=== PATIENT | female | born 1955 | race Caucasian/White ===

== ENCOUNTER → 2016-09-05 | Outpatient (CLI) | payer BC ==
[2016-05-03 10:14] VITALS: BP 149/72
--- NOTE | 2016-09-05 14:17 | RAD ---
HISTORY: Asthma Study: PA and lateral views the chest Comparison: 07/02/2016 Findings: Lungs are hypo aerated. There is mild bibasilar atelectasis. No focal airspace opacities are noted. Cardiac silhouette is at the upper limits of normal in size. This appearance is likely exaggerated b y the low lung volumes. There are no pleural effusions. IMPRESSION: 1. Low lung volumes with mild bibasilar atelectasis. No focal airspace opacities are demonstrated.. Reported By:
== END ==
LOC: RAD 12:33
PROVIDERS: ATTEND Internal Medicine Pulmonary Disease
DX: E66.8 Other obesity (principal); J45.909 Unspecified asthma, uncomplicated
CPT/HCPCS: 71020

== ENCOUNTER → 2016-11-20 | Outpatient (CLI) | payer BC ==
[2016-05-03 10:14] VITALS: BP 149/72
[~2016-11-20] MED LIST: NS 100 ML IV 100 ML IV ONE
[2016-11-20 09:12] LABS: CREATININE 1.24 mg/dL (0.55-1.02)
--- NOTE | 2016-11-21 10:42 | CT ---
CT OF THE ABDOMEN AND PELVIS WITH CONTRAST HISTORY: Bilateral upper quadrant palpable cysts Comparison: None Technique: Multiple axial images of the abdomen and pelvis were obtained from the lung bases to the pubic symphy sis follow the administration of IV contrast as well as oral contrast. Dose reduction techniques inc luding Automated Exposure Control (AEC) and adjustment of mA and kV were utlized. Findings: The heart is normal in size. There is no pericardial effusion. Lung bases are clear without focal con solidation, pleural effusion or pneumothorax. Liver and spleen are normal in size, enhancement characteristics and contour. No focal lesions. The p ortal vein is patent. No ductal dilitation. Gallbladder absent. Pancreatic atrophy. Adrenal glands ar e normal. Kidneys enhance symmetrically without hydronephrosis or nephrolithiasis. No bowel obstruction or inflammation. No abnormal appearing mesenteric or retroperitoneal lymph node s. No free fluid or fluid collections. The bladder is normal in appearance. Uterus and ovaries not well seen. No free fluid or abnormal pelv ic lymph nodes. No aggressive osseous lesions. IMPRESSION: 1. No explanation for patient's palpable findings is identified on this examination. Reported By:
== END ==
LOC: RAD 08:37
PROVIDERS: ATTEND Nurse Practitioner Family
DX: L98.9 Disorder of the skin and subcutaneous tissue, unspecified (principal)
CPT/HCPCS: 36415; 74177; 82565; 84520; A4222

== ENCOUNTER 2021-12-06 11:22 | Observation (INO) ==
[2021-12-06] MEDS ORDERED: Atrovent NEB TX 0.02% NEB SCH (14:52)
[2021-12-06] MEDS ORDERED: PROVENTIL NEB TX 0.083% 2.5MG/ 3ML NEB SCH (14:52)
[2021-12-06] MEDS ORDERED: TUSSIONEX PENNKINETIC SUSP PO PRN (14:52)
[2021-12-06 15:54] LABS: BASOPHILS % (AUTO) 0.3 % (0.2-1.0); EOSINOPHILS # (AUTO) 0.1 x10^3/uL (0.0-0.2); EOSINOPHILS % (AUTO) 1.1 % (0.9-2.9); HEMATOCRIT 40.7 % (36.0-47.0); HEMOGLOBIN 14.5 g/dL (12.0-16.0); LYMPHOCYTES # (AUTO) 1.3 X10^3/uL (1.3-2.9); LYMPHOCYTES % (AUTO) 16.8 % (21.0-51.0); MEAN CORPUSCULAR HEMOGLOBIN 31.4 pg (27.0-34.0); MEAN CORPUSCULAR HGB CONC 35.5 g/dL (33.0-35.0); MEAN CORPUSCULAR VOLUME 88.4 fL (80.0-100.0); MEAN PLATELET VOLUME 8.4 fL (7.4-11.0); MONOCYTES # (AUTO) 0.7 x10^3/uL (0.3-0.8); MONOCYTES % (AUTO) 8.8 % (0.0-13.0); NEUTROPHILS # (AUTO) 5.8 x10^3/uL (2.2-4.8); RED CELL DISTRIBUTION WIDTH 13.2 % (11.6-16.5); WHITE BLOOD COUNT 7.9 X10^3/uL (3.6-10.0)
[2021-12-06] MEDS ORDERED: NS 1/2 1,000 ML IV 1,000 ML IV ONE (16:04)
[2021-12-06 16:07] LABS: ALANINE AMINOTRANSFERASE 108 Units/L (12-78); ALBUMIN 3.2 g/dL (3.4-5.0); ALKALINE PHOSPHATASE 186 Units/L (46-116); BLOOD UREA NITROGEN 17 mg/dL (7-18); CALCIUM 9.2 mg/dL (8.5-10.1); CHLORIDE 102 mmol/L (98-107); COR CA(FOR HYPOALB) 9.8 mg/dL (8.5-10.1); CREATININE 1.17 mg/dL (0.55-1.02); SODIUM 140 mmol/L (136-145); TOTAL PROTEIN 3.8 g/dL (6.4-8.2); eGFR NON BLACK RACES 49 (>60)
[2021-12-06] MEDS: LEVAQUIN PREMIX IV 750 MG 750 MG/150 ML BAG IV SCH (16:27)
[2021-12-06] MEDS: ROBITUSSIN DM PO SCH ×3 (16:27→20:57)
[2021-12-06] MEDS: NS 1/2 1,000 ML IV 1,000 ML IV SCH (16:27)
[2021-12-06] MEDS ORDERED: PROVENTIL NEB TX 0.083% 2.5MG/ 3ML ONE (16:34)
[2021-12-06] MEDS ORDERED: MAGNESIUM SULFATE 1 GRAM/100 mL PREMIX 1 G/100 ML BAG IV PRN (16:34)
[2021-12-06] MEDS: PROVENTIL NEB TX 0.083% 2.5MG/ 3ML NEB SCH (16:42)
[2021-12-06] MEDS: K-DUR TAB 20 MEQ PO PRN (17:32)
--- NOTE | 2021-12-06 17:43 | RAD ---
HISTORYRelevant Clinical Information PNEUMONIASTUDYCHEST, 1 VIEWCOMPARISONNoneFINDINGSThe trachea is midline. The cardiac silhouette is unremarkable. The lungs are clear without focal infiltrate or effusion. The bony thorax is unremarkable.IMPRESSIONNo acute cardiopulmonary disease.Electronically signed by: WICHO BENSON (Dec 06, 2021 17:41:49)
[2021-12-06] MEDS: ZOSYN VIAL 4.5 GRAMS 4.5 G in NS 100 ML IV 100 ML IV SCH ×2 (18:03→22:51)
[2021-12-06] MEDS: MILK OF MAGNESIA PO SCH (20:57)
[2021-12-06] MEDS: PULMICORT NEB TX 0.5 MG NEB SCH (21:42)
[2021-12-07] MEDS: PROVENTIL NEB TX 0.083% 2.5MG/ 3ML NEB SCH ×5 (00:20→16:45)
[2021-12-07] MEDS: ZOSYN VIAL 4.5 GRAMS 4.5 G in NS 100 ML IV 100 ML IV SCH ×3 (05:28→21:03)
[2021-12-07] MEDS: NS 1/2 1,000 ML IV 1,000 ML IV SCH ×2 (05:40→18:19)
[2021-12-07 06:13] LABS: BASOPHILS % (AUTO) 0.3 % (0.2-1.0); EOSINOPHILS # (AUTO) 0.1 x10^3/uL (0.0-0.2); HEMOGLOBIN 13.2 g/dL (12.0-16.0); LYMPHOCYTES # (AUTO) 1.1 X10^3/uL (1.3-2.9); LYMPHOCYTES % (AUTO) 15.9 % (21.0-51.0); MEAN CORPUSCULAR HEMOGLOBIN 30.5 pg (27.0-34.0); MEAN CORPUSCULAR HGB CONC 34.7 g/dL (33.0-35.0); MEAN CORPUSCULAR VOLUME 87.8 fL (80.0-100.0); MEAN PLATELET VOLUME 8.9 fL (7.4-11.0); MONOCYTES # (AUTO) 0.8 x10^3/uL (0.3-0.8); MONOCYTES % (AUTO) 11.8 % (0.0-13.0); NEUTROPHILS # (AUTO) 4.9 x10^3/uL (2.2-4.8); RED BLOOD COUNT 4.33 X10^6/uL (3.5-5.4); RED CELL DISTRIBUTION WIDTH 13.1 % (11.6-16.5)
--- NOTE | 2021-12-07 06:24 | RAD ---
HISTORYF/U PNEUMONIA; SOB Relevant Clinical InformationSTUDYCHEST, 1 [id number]/01/2022FINDINGSThe trachea is midline. The cardiac silhouette is unremarkable. The lungs are clear without focal infiltrate or effusion. The bony thorax is unremarkable.IMPRESSIONNo acute cardiopulmonary findings .Electronically signed by: Gage Looney (Dec 07, 2021 06:22:56)
[2021-12-07 06:28] LABS: ALANINE AMINOTRANSFERASE 90 Units/L (12-78); ALBUMIN 2.8 g/dL (3.4-5.0); ALKALINE PHOSPHATASE 176 Units/L (46-116); ASPARTATE AMINO TRANSFERASE 73 Units/L (15-37); BLOOD UREA NITROGEN 14 mg/dL (7-18); CALCIUM 8.6 mg/dL (8.5-10.1); CHLORIDE 103 mmol/L (98-107); COR CA(FOR HYPOALB) 9.6 mg/dL (8.5-10.1); COR NA(FOR HYPERGLY) 141 mmol/L (136-145); CREATININE 1.15 mg/dL (0.55-1.02); SODIUM 140 mmol/L (136-145); TOTAL PROTEIN 6.7 g/dL (6.4-8.2); eGFR NON BLACK RACES 50 (>60)
[2021-12-07] MEDS: PULMICORT NEB TX 0.5 MG NEB SCH ×2 (08:35→21:57)
[2021-12-07] MEDS: ROBITUSSIN DM PO SCH ×4 (09:06→20:42)
[2021-12-07] MEDS: K-DUR TAB 20 MEQ PO PRN ×2 (09:06→14:31)
[2021-12-07] MEDS: MILK OF MAGNESIA PO SCH ×2 (09:07→20:40)
[2021-12-07] MEDS: LEVAQUIN PREMIX IV 750 MG 750 MG/150 ML BAG IV SCH (10:32)
[2021-12-07] MEDS ORDERED: ZOFRAN TAB 4 MG PO PRN (10:42)
[2021-12-07] MEDS ORDERED: BENTYL CAP 10 MG PO PRN (10:42)
[2021-12-07] MEDS ORDERED: PriLOSEC PO SCH (11:00)
[2021-12-07] MEDS ORDERED: PAXIL PO SCH (11:00)
[2021-12-07] MEDS: NEURONTIN CAP 100 MG PO SCH ×2 (11:33→20:43)
[2021-12-07] MEDS: BENICAR TAB 40 MG PO SCH (11:33)
--- NOTE | 2021-12-07 11:34 | DR.UPDATE ---
H&P Update Prescription drug monitoring program results: PDMP reviewed and no concerns identified H&P Reviewed: Yes Any changes to H&P?: Yes Changes noted:: WAS A DIRECT ADMISSION FOR TREATMENT OF BRONCHOPNEUMONIA. ON ARRIVAL TO THE HOSPITAL, HER VITALS WERE: 97.6-72-20-96%-113/57. LABS WERE OBTAINED. WBC 7.9, RBC 4.60, HGB 14.5, HCT 40.7, PLT COUNT 180, SODIUM 140, POTASSIUM 3.2, CHLORIDE 102, BUN 17, CREATININE 1.17, GLUCOSE 108, CALCIUM 9.2, TOTAL BILI 2.60, AST 133, ALT 108, ALK PHOS 186, TOTAL PROTEIN 3.8, ALBUMIN 3.2, MAGNESIUM 2.4. COVID, INFLUENZA, AND RSV WERE NEGATIVE. SHE WAS SWABBED FOR A RESPIRATORY VIRAL PANEL. HEPATITS PANEL WAS ALSO ORDERED. BLOOD CULTURES WERE COLLECTED AND SET UP. A CHEST XRAY WAS OBTAINED AND REVEALED: The trachea is midline. The cardiac silhouette is unremarkable. The lungs are clear without focal infiltrate or effusion. The bony thorax is unremarkable. SHE WAS STARTED ON NORMAL SALINE AT 75 ML/HR, ZOSYN 4.5G IV TID, LEVAQUIN 750MG IV DAILY, PULMICORT NEBS BID, ALBUTEROL NEBS Q6H, ROBITUSSIN DM 10ML PO QID, OTBS ACHS, AND HER HOME MEDICATIONS WERE RESUMED. OTHERWISE, WE PLAN TO FOLLOW-UP WITH AM LABS AND CONTINUE TO MONITOR. TIME SPENT ON CLINICAL ASSESSMENT, REVIWING LABS AND IMAGING, DECISION MAKING, AND DOCUMENTATION GREATER THAN 75 MINUTES. Patient was examined?: Yes
[2021-12-07] MEDS: REGLAN TAB 10 MG PO SCH ×2 (11:35→11:37)
[2021-12-07] MEDS: PROTONIX TAB 40 MG PO SCH ×2 (11:35→20:43)
[2021-12-07] MEDS: HYDROCHLOROTHIAZIDE 25 MG TAB PO SCH (11:35)
[2021-12-07] MEDS: SYNTHROID 125 mcg TAB PO SCH (11:35)
[2021-12-07] MEDS: PROCARDIA XL PO SCH (11:35)
[2021-12-07] MEDS: ULTRAM PO PRN ×2 (11:41→20:43)
[2021-12-07 14:00] VITALS: BMI 33.5
[2021-12-07 14:25] LABS: ASPARTATE AMINO TRANSFERASE 98 Units/L (15-37)
[2021-12-07] MEDS ORDERED: NS 1/2 1,000 ML IV 1,000 ML IV ONE (18:20)
[2021-12-07] MEDS ORDERED: LIPITOR TAB 20 MG PO SCH (21:00)
[2021-12-08] MEDS: PROVENTIL NEB TX 0.083% 2.5MG/ 3ML NEB SCH ×2 (00:59→06:22)
--- NOTE | 2021-12-08 05:53 | RAD ---
HISTORYF/U PNEUMONIA SOB Relevant Clinical InformationSTUDYCHEST, 1 [id number]/02/2022FINDINGSThe trachea is midline. The cardiac silhouette is unremarkable. The lungs are clear without focal infiltrate or effusion. The bony thorax is unremarkable.IMPRESSIONNo acute cardiopulmonary findings .Electronically signed by: Gage Looney (Dec 08, 2021 05:51:01)
[2021-12-08] MEDS: ZOSYN VIAL 4.5 GRAMS 4.5 G in NS 100 ML IV 100 ML IV SCH (05:57)
[2021-12-08 06:06] LABS: BASOPHILS % (AUTO) 0.4 % (0.2-1.0); EOSINOPHILS # (AUTO) 0.2 x10^3/uL (0.0-0.2); EOSINOPHILS % (AUTO) 2.1 % (0.9-2.9); HEMATOCRIT 37.1 % (36.0-47.0); LYMPHOCYTES # (AUTO) 1.3 X10^3/uL (1.3-2.9); LYMPHOCYTES % (AUTO) 17.3 % (21.0-51.0); MEAN CORPUSCULAR HEMOGLOBIN 30.9 pg (27.0-34.0); MEAN CORPUSCULAR HGB CONC 35.1 g/dL (33.0-35.0); MEAN CORPUSCULAR VOLUME 88.1 fL (80.0-100.0); MEAN PLATELET VOLUME 8.9 fL (7.4-11.0); MONOCYTES # (AUTO) 0.8 x10^3/uL (0.3-0.8); MONOCYTES % (AUTO) 10.1 % (0.0-13.0); NEUTROPHILS # (AUTO) 5.3 x10^3/uL (2.2-4.8); NEUTROPHILS % (AUTO) 70.1 % (42.0-75.0); RED BLOOD COUNT 4.22 X10^6/uL (3.5-5.4); RED CELL DISTRIBUTION WIDTH 13.3 % (11.6-16.5); WHITE BLOOD COUNT 7.6 X10^3/uL (3.6-10.0)
[2021-12-08 06:14] LABS: ALBUMIN 2.8 g/dL (3.4-5.0); CALCIUM 8.8 mg/dL (8.5-10.1); CARBON DIOXIDE 25.1 mmol/L (21-32); COR CA(FOR HYPOALB) 9.8 mg/dL (8.5-10.1); CREATININE 1.18 mg/dL (0.55-1.02); TOTAL PROTEIN 6.8 g/dL (6.4-8.2)
[2021-12-08] MEDS: K-DUR TAB 20 MEQ PO PRN ×2 (06:29→09:28)
[2021-12-08] MEDS: PULMICORT NEB TX 0.5 MG NEB SCH (08:18)
[2021-12-08] MEDS: LEVAQUIN PREMIX IV 750 MG 750 MG/150 ML BAG IV SCH (08:39)
[2021-12-08] MEDS: BENICAR TAB 40 MG PO SCH (08:40)
[2021-12-08] MEDS: PROCARDIA XL PO SCH (08:41)
[2021-12-08] MEDS: ROBITUSSIN DM PO SCH (08:41)
[2021-12-08] MEDS: NEURONTIN CAP 100 MG PO SCH (08:41)
[2021-12-08] MEDS: PROTONIX TAB 40 MG PO SCH (08:41)
[2021-12-08] MEDS: HYDROCHLOROTHIAZIDE 25 MG TAB PO SCH (08:41)
[2021-12-08] MEDS: MILK OF MAGNESIA PO SCH (08:41)
[2021-12-08] MEDS: SYNTHROID 125 mcg TAB PO SCH (08:41)
[2021-12-08] MEDS: NS 1/2 1,000 ML IV 1,000 ML IV SCH (08:42)
[2021-12-08 12:03] VITALS: BP 105/58
[2021-12-09] MEDS ORDERED: VITAMIN D (1.25MG) PO SCH (11:18)
[2021-12-12 06:11] LABS: HEPATITIS B SURFACE ANTIGEN Negative (Negative)
== END 2021-12-08 12:15 | disposition home or self-care (01) ==
LOC: MED/SURG
PROVIDERS: ADMIT Internal Medicine; ATTEND Internal Medicine
DX: J13 Pneumonia due to Streptococcus pneumoniae; Z20.822 Contact with and (suspected) exposure to COVID-19; B34.8 Other viral infections of unspecified site; E11.65 Type 2 diabetes mellitus with hyperglycemia; R51.9 Headache, unspecified; I10 Essential (primary) hypertension